=== PATIENT | male | born 1970 | race Caucasian/White ===

== ENCOUNTER 2020-12-06 08:06 | Emergency (ER) | payer OTHER ==
[2020-12-06] MEDS ORDERED: SODIUM CHLORIDE 1,000 ML IV ONE (08:24)
[2020-12-06 08:27] VITALS: TEMP 97.7; BMI 26.9
[2020-12-06 09:22] LABS: BASO % 0.6 % (0-2.0); HEMATOCRIT 43.1 % (35.4-49); HEMOGLOBIN 15.3 GM/dL (11.7-16.9); LYMPH % 21.3 % (8-40); MCHC 35.4 g/dl (32.0-35.9); MEAN CELL VOLUME 87.5 fl (80-96); MEAN PLT VOLUME 7.7 fl (7.5-11.1); MONO % 6.2 % (3.8-10.2); NEUT % 70.9 % (42.8-82.8); PLATELET COUNT 192 10^3/uL (134-434); RBC 4.93 M/mm3 (4.00-5.60); RDW 12.4 % (11.9-15.9); WHITE BLOOD COUNT 6.2 K/mm3 (4.0-10.0)
[2020-12-06 09:46] LABS: CHLORIDE 107 mmol/L (98-107); SODIUM 140 mmol/L (136-145)
[2020-12-06 09:48] LABS: ANION GAP 5 MMOL/L (8-16); CALCIUM 8.6 mg/dL (8.5-10.1); CO2 28 mmol/L (21-32); GLUCOSE,RANDOM 85 mg/dL (74-106)
[2020-12-06 09:49] LABS: ALBUMIN 3.9 g/dl (3.4-5.0); MAGNESIUM 2.3 mg/dL (1.8-2.4)
[2020-12-06 09:51] LABS: SGOT/AST 27 U/L (15-37); SGPT/ALT 40 U/L (13-61)
[2020-12-06 09:52] LABS: CREATININE 1.4 mg/dL (0.55-1.3)
[2020-12-06 09:53] LABS: BILIRUBIN,TOTAL 0.6 mg/dL (0.2-1); TOT PROT 8.5 g/dl (6.4-8.2)
[2020-12-06 09:54] LABS: ALK PHOS 52 U/L (45-117)
[2020-12-06 09:55] LABS: LDH 184 U/L (87-246)
[2020-12-06 10:30] LABS: BLOOD UREA NITROGEN 26.4 mg/dL (7-18)
[2020-12-06 10:32] LABS: PH,URINE 5.5 (5.0-8.0); URINE APPEARANCE CLEAR; URINE BILIRUBIN NEGATIVE (NEGATIVE); URINE COLOR YELLOW; URINE GLUCOSE (UA) NEGATIVE (NEGATIVE); URINE KETONE TRACE (NEGATIVE); URINE LEUK ESTERASE NEGATIVE (NEGATIVE); URINE NITRITE NEGATIVE (NEGATIVE); URINE PROTEIN NEGATIVE (NEGATIVE)
[2020-12-06 11:21] VITALS: BP 119/88; PULSE 61
[2020-12-07 17:07] LABS: FREE KAPPA,SERUM 33.3 mg/L (3.3-19.4)
[2020-12-08 12:08] LABS: ANTIGLOMERULAR BASEMENT MEN.AB 5 units (0-20)
[2020-12-08 15:07] LABS: TOTAL PROTEIN, URINE 13.1 mg/dL (Not Estab.)
[2020-12-08 16:09] LABS: ATYPICAL pANCA <1:20 titer (Neg:<1:20); C-ANCA <1:20 titer (Neg:<1:20)
== END 2020-12-06 11:21 | disposition home or self-care (01) ==
LOC: JER 08:06
PROC: 3E0337Z Introduction of Electrolytic and Water Balance Substance into Peripheral Vein, Percutaneous Approach (ICD-10-PCS; principal; 2020-12-06)
DX: R61 Generalized hyperhidrosis (principal)
CPT/HCPCS: 36415; 71046-TC-FY; 80053; 81003; 82043; 82550; 82553; 82570; 83516; 83520; 83615; 83735; 83883; 84155; 84156; 84157; 84165; 84443; 84484; 85025; 85651; 86038; 86140; 86160; 86162; 86225; 86256; 86705; 86706; 87340; 87517; 87522; 93005; 93010; 99284-25

== ENCOUNTER 2022-03-21 09:53 | Emergency (ER) | payer OTHER ==
[2022-03-21] MEDS ORDERED: ASPIRIN 325 MG ENTERIC COATED TABLET (FP) PO ONE (10:07)
[2022-03-21] MEDS ORDERED: NITROGLYCERIN 2% OINTMENT - 1GM PACKET TD ONE ×2 (10:08→10:17)
[2022-03-21 10:11] VITALS: TEMP 98.4; BMI 26.2
[2022-03-21] MEDS ORDERED: ASPIRIN COATED 81 MG TABLET.EC ONE (10:16)
[2022-03-21 11:16] LABS: BASO % 0.3 % (0-2.0); EOS % 0.1 % (0-4.5); HEMOGLOBIN 14.9 GM/dL (11.7-16.9); LYMPH % 7.6 % (8-40); MCH 30.1 pg (25.7-33.7); MCHC 33.9 g/dl (32.0-35.9); MEAN PLT VOLUME 7.3 fl (7.5-11.1); MONO % 6.5 % (3.8-10.2); NEUT % 85.5 % (42.8-82.8); PLATELET COUNT 228 10^3/uL (134-434); RBC 4.95 M/mm3 (4.00-5.60); RDW 12.7 % (11.9-15.9)
[2022-03-21 11:30] LABS: CHLORIDE 106 mmol/L (98-107); SODIUM 141 mmol/L (136-145)
[2022-03-21 11:33] LABS: ALBUMIN 3.8 g/dl (3.4-5.0); ANION GAP 8 MMOL/L (8-16); BLOOD UREA NITROGEN 25.2 mg/dL (7-18); CALCIUM 8.7 mg/dL (8.5-10.1); CO2 28 mmol/L (21-32); GLUCOSE,RANDOM 103 mg/dL (74-106); MAGNESIUM 2.2 mg/dL (1.8-2.4)
[2022-03-21] MEDS ORDERED: SODIUM CHLORIDE 1,000 ML IV STA (11:34)
[2022-03-21 11:37] LABS: CREATININE 1.4 mg/dL (0.55-1.3); SGOT/AST 19 U/L (15-37); SGPT/ALT 19 U/L (13-61)
[2022-03-21 11:38] LABS: BILIRUBIN,TOTAL 0.6 mg/dL (0.2-1); TOT PROT 7.6 g/dl (6.4-8.2)
[2022-03-21 11:39] LABS: ALK PHOS 37 U/L (45-117)
[2022-03-21 12:15] LABS: ERYTHROCYTE SEDIMENTATION RATE 8 mm/hr (0-20)
[2022-03-21] MEDS ORDERED: KETOROLAC TROMETHAMINE 15 MG/ML VIAL ONE (15:04)
[2022-03-21 16:09] VITALS: BP 113/83; PULSE 95; RESP 18
== END 2022-03-21 16:15 | disposition home or self-care (01) ==
LOC: JER 09:53
PROC: 3E0337Z Introduction of Electrolytic and Water Balance Substance into Peripheral Vein, Percutaneous Approach (ICD-10-PCS; principal; 2022-03-21)
DX: R07.9 Chest pain, unspecified (principal)
CPT/HCPCS: 36415; 71045-TC-FY; 78452-TC; 80053; 83735; 84484; 85025; 85379; 85651; 86140; 93005; 93010; 93017; 93306-TC; 99285-25; A9502